=== PATIENT | male | born 1975 | race Caucasian/White ===

== ENCOUNTER 2025-04-05 17:43 | Emergency (ER) | payer BC, SELFPAY ==
[2025-04-05 17:44] VITALS: BP 153/104
[2025-04-05] MEDS: TORADOL 15 MG IV (19:05)
[2025-04-05] MEDS: REGLAN 10 MG IV (19:07)
[2025-04-05 19:10] VITALS: BP 137/86
[2025-04-05] MEDS: DECADRON 10 MG IV (19:13)
[2025-04-05] MEDS: MAGNESIUM SULFATE 50 IV (19:17)
--- NOTE | 2025-04-05 19:21 | EDRN ---
Pt with frontal headache x 7 days. Pt has used tylenol, motrin, aleve without much relief. Pt denies n/v, photopbobia, dizziness, fever/chills/cough. Pt has intermittent R eye discomfort.
--- NOTE | 2025-04-05 20:09 | ED.GENMED ---
History of Present Illness
General
Chief Complaint: Headache
Time Seen by Provider: 04/05/25 18:28
History of Present Illness
History of Present Illness:
49-year-old male presents for evaluation of severe intermittent headaches for the past week. Describes a right-sided headache that feels as though it is behind the right eye. He notes that he has annual fall 'sinus headaches' that feels similar to
this however not as severe. He went to urgent care yesterday and received a shot of Toradol which did help transiently however headache returned today. Denies any vision changes or diplopia, no nausea or vomiting, no fevers or chills.
Past History
Past History
ED Past Medical History: GERD, Other and Other (Eosinophilic esophagitis, phlebitis, arthritis, peripheral neuropathy, gastritis, diverticulitis,)
ED Past Surgical History: Appendectomy
Social History
Tobacco: Non-smoker
Alcohol: Occasional
Personal:
Living: with family
Employment: Employed
Family History
Family History: Other (With myasthenia gravis)
Review of Systems
Review of Systems
Allergies reviewed?: Yes
All Other Systems: ROS reviewed and negative except as documented in HPI and ROS
Phy Exam
Physical Exam
Physical Exam:
GEN: Well appearing, NAD, WDWN
HEENT: Oral mucosa moist, no scleral icterus, no nasal congestion, no temporal artery tenderness bilaterally
Cardiac: Regular rate
Lung: No respiratory distress, no tachypnea
MSK: No gross deformity or injuries
Skin: Good color, no pallor or jaundice, no rashes
Neuro: AO x3; CN II-XII grossly intact. BUE strength 5/5 in all bryant, sensation intact and symmetric. BLE strength 5/5 in all bryant, sensation intact and symmetric
Psych: Calm, cooperative
Course
Orders/Labs/Results
Orders:
Orders
04/05/25 17:48
CT Head W/o Iv Contrast Urgent
Comment:
Reason For Exam: severe headache, sharp pain behind R eye
04/05/25 18:43
Dexamethasone Sod Phosphate [Decadron] 10 mg IV NOW STA
Ketorolac [Toradol] 15 mg IV NOW STA
Magnesium Sulfate 2 Gram/50 ml [Magnesium Sulfate] 2 gram in 50 ml IV NOW
Metoclopramide [Reglan] 10 mg IV NOW STA
Vital Signs
Initial and Last Documented VS:
Initial Vital Signs
Temp Pulse Resp BP Pulse Ox
97.8 F 83 18 153/104 98
04/05/25 17:44 04/05/25 17:44 04/05/25 17:44 04/05/25 17:44 04/05/25 17:44
Last Documented Vital Signs
Temp Pulse Resp BP Pulse Ox
97.8 F 63 14 130/83 95
04/05/25 17:44 04/05/25 20:13 04/05/25 20:13 04/05/25 20:13 04/05/25 20:13
MDM/Problems Addressed
MDM/Problems Addressed:
Patient has no vision changes or temporal artery tenderness/jaw claudication concerning for giant cell arteritis, neurologically intact. CT was obtained prior to my evaluation due to reports of 'worst headache of my life' and this was negative.
Likely sinus related headache, treated with supportive medications in the ED with symptom improvement, will treat with course of steroids as well
*Pulse Oximetry
SaO2: 96
Oxygen Mode of Delivery: Room air
Patient hypoxic: no
*Critical Care Note
Total Time (30-74mins, 75-104mins- exclusive of procedures): Not Applicable
ED Attending Note
-
Portions of this chart may have been created with voice recognition software.� Occasional wrong word or��sound alike� substitutions may have occurred due to the inherent limitations of voice recognition software.
Discharge Plan
Departure
Patient Disposition: Home (Routine Discharge)
Date of Disposition: 04/05/25
Time of Disposition: 20:09
Patient with high blood pressure during this ER visit?: No
Discharge Problem:
Headache
Instructions: Headache, Adult (DC)
Prescriptions:
New
methylprednisolone [Medrol (Papi)] 4 mg tablets,dose pack
See Rx Instructions .ROUTE .COMPLEX Qty: 21 0RF
Rx Instructions:
orally per package directions
No Action
famotidine 40 mg Tablet
40 mg PO DAILY PRN (Reason: reflux)
finasteride 1 mg Tablet
1 mg PO DAILY
Referrals:
Darrick Graves DO [Family Provider, Family Practice]
Interventions
Interventions:
*Risk Screen - Suicide Last Done: 04/05/25 17:44
*General Assessment Last Done: 04/05/25 17:44
*Neglect/Abuse Screening Last Done: 04/05/25 17:44
*ED COVID-19 Vaccine History Last Done: 04/05/25 17:44
*Nursing Disposition Last Done: 04/05/25 20:19
ED- Neurological Assessment Last Done: 04/05/25 19:20
Discharge Date and Time
Discharge Date/Time: 04/05/25 20:19
Print Language: [email or web address]
[2025-04-05 20:13] VITALS: BP 130/83
== END 2025-04-05 20:19 | disposition home or self-care (01) ==
LOC: EMR 17:43
PROVIDERS: EMERGENCY PHYSICIAN Student in an Organized Health Care Education/Training Program; FAMILY PHYSICIAN Family Medicine
DX: R51.9 Headache, unspecified (principal); K21.9 Gastro-esophageal reflux disease without esophagitis; M19.90 Unspecified osteoarthritis, unspecified site; G62.9 Polyneuropathy, unspecified
CPT/HCPCS: 99284; 96374; 96375 ×3; 70450

== ENCOUNTER 2025-04-19 12:35 | Emergency (ER) | payer BC, SELFPAY ==
[2025-04-19 12:36] VITALS: BP 148/92
--- NOTE | 2025-04-19 14:06 | ED.GENMED ---
History of Present Illness
General
Chief Complaint: Headache
Source: patient
Exam Limitations: none
Time Seen by Provider: 04/19/25 13:29
Nursing documentation reviewed up to this point in time: agreed with
History of Present Illness
History of Present Illness:
Note:
CHIEF COMPLAINT(S)
Headache and pain radiating from the back of the head to behind the right eye.
HISTORY OF PRESENT ILLNESS
The patient is a 49-year-old male who presented with a recurring headache that started approximately two weeks ago. Initially, the pain was located behind the right eye, but it has since migrated to the back of the head. The patient describes the
sensation as 'shocking' and indicates that it comes and goes daily. He reports partial relief from prednisone and nerve medication provided during a recent visit. A higher dose of prednisone and an antibiotic were also prescribed. The patient sought
to expedite an MRI and a neurology appointment, but the earliest available appointments are two weeks and two months away, respectively. The patient drove himself to the appointment, suggesting a level of functionality, although he noted that the
pain affects his ability to work effectively. He was previously evaluated for high protein levels in his blood, with the most recent tests showing an increase.
PHYSICAL EXAM
General: Alert, no acute distress.
Skin: Warm, dry.
Head: Normocephalic, atraumatic.
Neck: Supple, trachea midline.
Eye, ears, nose, mouth, and throat: Oral mucosa moist.
Cardiovascular: Normal peripheral perfusion, No edema.
Respiratory: Respirations are non-labored.
Gastrointestinal: Abdomen nondistended
Back: Normal range of motion, Normal alignment.
Musculoskeletal: Normal range of motion, normal strength.
Neurological: Alert and oriented to person, place, time, and situation, No focal neurological deficit observed.
Psychiatric: Cooperative, appropriate mood & affect.
PROBLEM LIST
Acute Problems:
- Headache with radiation to the back of the head and right eye
- Elevated protein levels in the blood
PLAN
- Administer pain relief medication in the emergency department.
- Consider fluids to improve patient comfort.
- Continue current medications as previously prescribed.
- Encourage follow-up for MRI and neurology consult as scheduled.
- Avoid prescribing MRI or neurologist evaluation in the emergency setting per department protocols unless clinically necessary.
DIFFERENTIAL DIAGNOSIS
The Differential Diagnosis includes, in no particular order and is not limited to:
- Migraine
- Cluster headache
- Tension-type headache
- Occipital neuralgia
- Temporal arteritis
- Sinusitis-related headache
- Medication-overuse headache
- Secondary headache due to cervical spine issues
- Pseudotumor cerebri
- Hypertension-related headache
CARE-UPDATE
04/19/25 - 15:30
Patient declined medication and requested discharge. Informed that MRI is not available through the emergency department. Patient stable for discharge. Eye pressures measured with right eye at 16 and left eye at 20. Will follow up with
super[facility] [employer] [facility] for further evaluation and continue current eye drops as treatment.
Disposition:
SUMMARY OF ENCOUNTER
The patient was seen in the emergency department for a recurring headache with pain radiating from the back of the head to behind the right eye. The patient has had normal neurological examination and previous CT head results were unremarkable.
Based on these findings, there is no suspicion of intracranial hemorrhage or meningitis. The patient declined treatment with a migraine cocktail and expressed a preference to manage symptoms with medication at home.
DISPOSITION
Discharge
ASSESSMENT
The patients presentation is suggestive of a headache disorder without acute neurologic or intracranial abnormalities.
PLAN
The patient is advised to follow up with a neurologist as scheduled and continue taking medications based on previous prescriptions.
PATIENT EDUCATION AND COUNSELING
The patient was informed about the lack of evidence for emergent intracranial processes based on previous imaging. He was advised to maintain his current medication regimen and encouraged to have ongoing follow-up with neurology.
FOLLOW-UP INSTRUCTIONS
Patient is to follow up with a neurologist as scheduled and continue current medications.
MEDICATION RECONCILIATION
The patient will continue using previously prescribed medications, including prednisone and nerve medication.
MEDICAL DECISION MAKING
- Complexity of Data Reviewed: Chronic conditions affecting care include headaches and elevated protein levels. Differentials include migraine, cluster headache, tension-type headache, occipital neuralgia, temporal arteritis, sinusitis-related
headache, medication-overuse headache, secondary headache due to cervical spine issues, pseudotumor cerebri, and hypertension-related headache.
- Risk:
Consideration of Admission/Observation: Escalation of care including admission/observation was considered given the complexity and risk of the patients presenting complaint, exam findings, and/or their underlying comorbidities. However, ultimately I
feel the patient is safe for outpatient management with close follow up. Reasoning: Work-up reassuring, does not reveal any acute life/organ threatening processes, patients symptoms well controlled upon reevaluation, reexamination is reassuring,
vitals are stable, patient agreeable with discharge, reliable for follow-up.
DIAGNOSIS
Headache, unspecified (R51.9)
Past History
Past History
ED Past Medical History: GERD, Other and Other (Eosinophilic esophagitis, phlebitis, arthritis, peripheral neuropathy, gastritis, diverticulitis,)
ED Past Surgical History: Appendectomy
Social History
Tobacco: Non-smoker
Alcohol: Occasional
Personal:
Living: with family
Employment: Employed
Family History
Family History: Other (With myasthenia gravis)
Phy Exam
Physical Exam
Physical Exam:
.
Course
Vital Signs
Initial and Last Documented VS:
Initial Vital Signs
Temp Pulse Resp BP Pulse Ox
97.8 F 104 16 148/92 96
04/19/25 12:36 04/19/25 12:36 04/19/25 12:36 04/19/25 12:36 04/19/25 12:36
Last Documented Vital Signs
Temp Pulse Resp BP Pulse Ox
97.8 F 87 16 133/86 97
04/19/25 12:36 04/19/25 14:25 04/19/25 14:25 04/19/25 14:25 04/19/25 14:25
*Pulse Oximetry
SaO2: 96
Oxygen Mode of Delivery: Room air
Patient hypoxic: no
*Critical Care Note
Total Time (30-74mins, 75-104mins- exclusive of procedures): Not Applicable
ED Attending Note
-
Portions of this chart may have been created with voice recognition software.� Occasional wrong word or��sound alike� substitutions may have occurred due to the inherent limitations of voice recognition software.
Discharge Plan
Departure
Patient Disposition: Home (Routine Discharge)
Date of Disposition: 04/19/25
Time of Disposition: 14:06
Patient with high blood pressure during this ER visit?: Yes
Condition: Good
Discharge Problem:
Headache
Instructions: Headache, Adult (DC), BLOOD PRESSURE
Prescriptions:
No Action
famotidine 40 mg Tablet
40 mg PO DAILY PRN (Reason: reflux)
finasteride 1 mg Tablet
1 mg PO DAILY
methylprednisolone [Medrol (Papi)] 4 mg tablets,dose pack
See Rx Instructions .ROUTE .COMPLEX Qty: 21 0RF
Rx Instructions:
orally per package directions
Referrals:
Darrick Graves DO [Family Provider, Family Practice]
Poppy Stokes MD [Non-Admitting Privileges, Psychiatry] - Call in 1-3 days for appt
Servando Anderson MD [Active, Neurology] - Call in 1-3 days for appt
Interventions
Interventions:
*Risk Screen - Suicide Last Done: 04/19/25 12:36
*General Assessment Last Done: 04/19/25 14:25
*Neglect/Abuse Screening Last Done: 04/19/25 14:25
*ED- Fall Risk Assessment Last Done: 04/19/25 14:25
*ED COVID-19 Vaccine History Last Done: 04/19/25 14:25
*ED Influenza Vaccine History Last Done: 04/19/25 14:25
*Nursing Disposition Last Done: 04/19/25 14:25
ED- Neurological Assessment Last Done: 04/19/25 14:25
Discharge Date and Time
Discharge Date/Time: 04/19/25 14:25
Print Language: CHINESE
[2025-04-19 14:25] VITALS: BP 133/86
== END 2025-04-19 14:25 | disposition home or self-care (01) ==
LOC: EMR 12:35
PROVIDERS: EMERGENCY PHYSICIAN Emergency Medicine; FAMILY PHYSICIAN Family Medicine
DX: R51.9 Headache, unspecified (principal); M19.90 Unspecified osteoarthritis, unspecified site; K21.9 Gastro-esophageal reflux disease without esophagitis; Z79.52 Long term (current) use of systemic steroids; Z86.72 Personal history of thrombophlebitis; Z87.19 Personal history of other diseases of the digestive system; Z90.49 Acquired absence of other specified parts of digestive tract
CPT/HCPCS: 99282

== ENCOUNTER → 2025-05-03 20:01 | Outpatient (REF) | payer BC, SELFPAY | LOC: MRI 20:01 | PROVIDERS: ATTENDING PHYSICIAN Nurse Practitioner Family; FAMILY PHYSICIAN Family Medicine | DX: G44.52 New daily persistent headache (NDPH) (principal) | CPT/HCPCS: 70553; A9575 ==

== ENCOUNTER → 2025-05-21 15:26 | Outpatient (REF) | payer BC, SELFPAY | LOC: RAD 15:26 | PROVIDERS: ATTENDING PHYSICIAN Psychiatry & Neurology Neurology; FAMILY PHYSICIAN Family Medicine | DX: G44.84 Primary exertional headache (principal) | CPT/HCPCS: 70496; Q9967 ==

== ENCOUNTER → 2025-05-30 20:14 | Outpatient (REF) | payer BC, SELFPAY | LOC: PAVMRI 20:14 | PROVIDERS: ATTENDING PHYSICIAN Psychiatry & Neurology Neurology; FAMILY PHYSICIAN Family Medicine | DX: M54.12 Radiculopathy, cervical region (principal) | CPT/HCPCS: 72141 ==